=== PATIENT | male | born 1995 | race Caucasian/White ===

== ENCOUNTER → 2017-07-24 | Outpatient (CLI) | payer OTHER ==
--- NOTE | 2017-07-28 15:39 | CPEEG ---
[f rep st] ELECTROENCEPHALOGRAM ELECTROENCEPHALOGRAM DATE OF STUDY: 07/24/2017 DATE OF INTERPRETATION: 07/28/2017 INTERPRETATION: This 4-hour video EEG recording is normal. There were no potentially epileptogenic abnormalities present in the awake or sleep recordings. During the video EEG monitoring session, the patient denied any clinical events. REPORT: This 4 hour video EEG contains 10 Hz alpha activity to the posterior head regions. The back ground activity was normal and symmetric. There was no abnormal activation at rest, during photic st imulation or hyperventilation. The patient became drowsy and fell asleep during the study. There wa s no abnormal activation during drowsiness, sleep, or during times of arousal. The patient did not h ave any clinical events during the video EEG monitoring session. /[id number]/MODL
== END ==
LOC: FCPNEURO 08:55
PROVIDERS: ATTEND Psychiatry & Neurology Neurology
DX: Z13.89 Encounter for screening for other disorder (principal); R29.818 Other symptoms and signs involving the nervous system; R20.0 Anesthesia of skin